=== PATIENT | female | born 1965 | race Caucasian/White ===

== ENCOUNTER 2025-04-20 10:12 | Outpatient (CLI) | payer BC | END 2025-04-20 10:13 | disposition home or self-care (01) | LOC: CSHMAMMO 10:12 | PROVIDERS: ATTEND Internal Medicine Rheumatology | DX: Z78.0 Asymptomatic menopausal state (principal); M85.832 Other specified disorders of bone density and structure, left forearm | CPT/HCPCS: 77080 ==